=== PATIENT | female | born 1965 | race Caucasian/White ===

== ENCOUNTER 2019-10-05 16:53 | Outpatient (CLI) | payer BC ==
--- NOTE | 2019-10-06 12:59 | MRI Report ---
Reason: RT CHRONIC LSS Procedure Date: 10/05/2019 Accession Number: [id number] / [id number] Procedure: MRI - Lumbar Spine W/O CPT Code: Final Report FULL RESULT: EXAM: MRI LUMBAR SPINE WITHOUT CONTRAST EXAM DATE: 10/05/2019 05:40 PM. CLINICAL HISTORY: Low back pain. Bilateral hip pain. Bilateral leg weakness. COMPARISON: LUMBAR SPINE W/O 07/06/2015 3:26 PM XR LUMBAR SPINE 2 OR 3 VIEWS 06/06/2011 8:49 AM. TECHNIQUE: Multiplanar, multisequence T1-weighted and fluid-sensitive sequences of the lumbar spine from T12 to S1 without contrast. Other: None. FINDINGS: Spinal Canal: The conus terminates at L1-L2. The conus medullaris and cauda equina are unremarkable. Alignment: Mild, 14 degrees, levoscoliosis of the lumbar spine is seen centered at L2-L3. Minimal, 2.5 mm, retrolisthesis is seen at L5-S1. Bone Marrow: Five [id number] lumbar vertebral bodies are assumed. No gross fractures or bone lesions. No bone marrow replacement. Disk Levels/Facets: T12-L1: Unremarkable. L1-L2: Unremarkable. L2-L3: Unremarkable. L3-L4: Unremarkable. Patchy T2 hypointense disk signal is seen. L4-L5: Unremarkable. Patchy T2 hypointense disk signal is seen. Mild thickening of the ligamentum flavum. L5-S1: Mild degenerative facet change. Loss of disk space height. Vacuum cleft phenomenon and T2 hypointense disk signal. Moderate diskogenic endplate irregularity with Modic type I signal change and edema. Mild circumferential disk bulge. Asymmetric left dorsolateral, inferior foraminal, and lateral disk protrusion is seen. This has slightly increased. Effacement of the descending left S1 nerve root is seen without lateral recess stenosis. Effacement of exiting left L5 nerve root is seen with moderate foraminal stenosis. Mild effacement of exiting right L5 nerve root lateral to the foramen is seen, without foraminal stenosis. Musculature: Normal. No edema or fatty atrophy. Other: The partially visualized retroperitoneum is unremarkable. Mild atherosclerotic change is seen involving the visualized aorta. Intimal thickening is seen in the proximal abdominal aorta. Mild fusiform dilatation is seen in the mid infrarenal abdominal aorta. This measures up to 30 mm in diameter at the L2 level. IMPRESSION: 1. Mild levoscoliosis of the lumbar spine. 2. L5-S1: Moderate degenerative disk and mild degenerative facet change. Left moderate foraminal stenosis with mass effect on exiting L5 nerve root. Comment: The following findings are so common in adults without low back pain that while we report their presence, they must be interpreted with caution and in the context of the clinical situation. (Reference Compak et al, Spine 2001) Prevalence of findings in patients without low back pain: Disk degeneration (any evidence): 92% Disk desiccation/T2 signal loss: 83% Disk height loss: 56% Disk bulge: 64% Disk protrusion: 32% Annular tear/high intensity zone: 38% RADIA
== END 2019-10-05 16:54 | disposition home or self-care (01) ==
LOC: DI 16:53
PROVIDERS: ATTEND Internal Medicine
DX: M51.37 Other intervertebral disc degeneration, lumbosacral region (principal); M47.817 Spondylosis without myelopathy or radiculopathy, lumbosacral region; M41.9 Scoliosis, unspecified
CPT/HCPCS: 72148